=== PATIENT | female | born 1960 | race Caucasian/White ===

== ENCOUNTER 2021-11-04 00:39 | Emergency (ER) | payer OTHER ==
[2021-11-04 00:58] LABS: BASOPHIL 1.2 % (0-2); EOSINOPHIL 4.3 % (0-5); HCT 41.7 % (37.0-47.0); HGB 14.8 g/dl (12.5-16.0); LYMPHOCYTE 31.9 % (15-48); MCH 30.9 pg (25.0-31.0); MCHC 35.5 g/dL (32.0-36.0); MCV 87.1 fL (78.0-100.0); MPV 9.9 fL (6.0-9.5); NEUTROPHIL 55.1 % (41-80); NRBC 0; PLT 306 K/uL (150-400); RBC 4.79 M/uL (4.20-5.40); RDW 12.7 % (11.5-14.0); WBC 9.3 K/uL (4.0-10.5)
[2021-11-04 01:53] LABS: ALBUMIN 3.7 g/dL (3.4-5.0); BILIRUBIN - TOTAL 0.5 mg/dL (0.2-1.0); BUN/CREAT RATIO (CALC) 33.3 RATIO; CREATININE 0.96 mg/dL (0.51-0.95); GLOBULIN (CALCULATION) 3.3 g/dL; MAGNESIUM 1.9 mg/dL (1.8-2.4); POTASSIUM 2.9 mmol/L (3.5-5.1)
[2021-11-04 03:25] LABS: CORONAVIRUS 2019 SARS-COV-2 NEGATIVE (NEGATIVE); INFLUENZA A NAA NEGATIVE (NEGATIVE)
== END 2021-11-04 04:35 | disposition home or self-care (01) ==
LOC: FER 00:39
PROVIDERS: Emergency Medicine
DX: R00.2 Palpitations (principal); Z20.822 Contact with and (suspected) exposure to COVID-19
CPT/HCPCS: 36415; 71045; 80053; 83735; 83880; 84443; 84484; 85025; 85379; 93005; J3475; J3480; J7050; U0002

== ENCOUNTER 2021-12-21 01:41 | Emergency (ER) | payer OTHER | END 2021-12-21 02:00 | disposition left against medical advice (07) | LOC: FER 01:41 | DX: R00.2 Palpitations (principal); Z53.29 Procedure and treatment not carried out because of patient's decision for other reasons | CPT/HCPCS: 93005 ==